=== PATIENT | male | born 1930 | race Caucasian/White ===

== ENCOUNTER → 2016-10-25 | Outpatient (CLI) | payer OTHER ==
[~2016-10-25] MED LIST: ALBU1AER INH; CALC-179 PO; CARV3.12 PO; FINA5TAB77 PO; MECL25CH PO; NEUR800T PO; OCUVTAB PO; PANT20 PO; PROSCAP5 OR; SERT25TA83 PO; SIMV20 PO; SYNT25TA PO; TAMS0.4C67 PO; TRAM50TA PO; VITATAB11 PO; WARF-20 PO; WARF3TAB PO
--- NOTE | 2016-10-25 10:41 | RADRPT ---
EXAM DATE/TIME: 10/25/2016 10:23 [facility] COMPARISON: No previous studies available for comparison. INDICATIONS : Dysphagia, coughing and and choking when eating FLUORO TIME: 0.9 minutes IMAGE COUNT: 0 CONTRAST: Dose as prescribed by speech pathologist. MEDICAL HISTORY : Chronic obstructive pulmonary disease. Cardiovascular disease. SURGICAL HISTORY : left arm ENCOUNTER: Initial ACUITY: 1 month PAIN SCORE: Non-responsive. LOCATION: Bilateral chest FINDINGS: A modified barium swallow was performed with speech pathology. Patient was given a variety of liquids to swallow. For a full detailed report, see report by the speech pathologist. CONCLUSION: 1. No aspiration noted. See speech pathology report. Duncan Ferrara MD on October 25, 2016 at 10:39 Board Certified Radiologist. This report was verified electronically.
== END ==
LOC: HRAD 10:17
DX: R13.10 Dysphagia, unspecified (principal); R05 Cough
CPT/HCPCS: 74230; 92611; G8996; G8997; G8998

== ENCOUNTER → 2017-10-07 | Outpatient (CLI) | payer OTHER ==
--- NOTE | 2017-10-07 10:58 | RADRPT ---
EXAM DATE/TIME: 10/07/2017 00:00 [facility] COMPARISON: No previous studies available for comparison. INDICATIONS : Dysphagia, coughing when eating FLUORO TIME: 1.3 minutes IMAGE COUNT: 0 CONTRAST: Dose as prescribed by speech pathologist. MEDICAL HISTORY : Stroke. esophagus dilated SURGICAL HISTORY : None. ENCOUNTER: Initial ACUITY: >1 year PAIN SCORE: Non-responsive. LOCATION: Bilateral esophagus FINDINGS: A modified barium swallow was performed with speech pathology. Patient was given a variety of liquids to swallow. Minimal laryngeal penetration noted. For a full detailed report, see report by the speech pathologist. CONCLUSION: 1. Minimal laryngeal penetration. No aspiration. Duncan Ferrara MD on October 07, 2017 at 10:56 Board Certified Radiologist. This report was verified electronically.
== END ==
LOC: HRAD 09:51
DX: R09.89 Other specified symptoms and signs involving the circulatory and respiratory systems (principal); R05 Cough; K22.70 Barrett's esophagus without dysplasia
CPT/HCPCS: 74230; 92611; G8996; G8997; G8998